=== PATIENT | female | born 1945 | race Caucasian/White ===

== ENCOUNTER 2017-02-15 09:44 | Inpatient (IN) | payer OTHER, MEDICAID ==
[~2017-02-15] VITALS: Ht 162.6 cm; Wt 85.7 kg
[~2017-02-15 09:44] MED LIST: ALEN70TA46; AMLO5TAB4; ASPI-1160; BUDE6HFA IH; IBUP-2028; NAPR-1176
[2017-02-15] MEDS ORDERED: METHYLPREDNISOLONE SOD SUCC 125 MG/2 ML VIAL IV STA (10:19)
[2017-02-15] MEDS ORDERED: ALBUTEROL (0.083%) 2.5MG/3ML NEB HHN STA (10:19)
[2017-02-15 11:02] LABS: BASOPHILS % 0.5 % (0.0-2.0); EOSINOPHILS % 0.7 % (0.0-5.0); HEMATOCRIT. 43.3 % (36.0-48.0); HEMOGLOBIN. 14.5 g/dL (12.0-16.0); LYMPHOCYTES % 33.9 % (20.0-50.0); MEAN CORPUSCULAR HEMOGLOBIN 29.6 pg (28.0-32.0); MEAN CORPUSCULAR VOLUME 88.3 fL (81.0-99.0); MONOCYTES % 10.3 % (2.0-8.0); NEUTROPHILS % 54.6 % (40.0-76.0); RED CELL DISTRIBUTION WIDTH 13.5 % (11.6-14.6)
[2017-02-15 11:08] LABS: INR 1.2; PROTHROMBIN TIME 12.3 sec (9.4-11.6)
[2017-02-15 11:18] LABS: CARBON DIOXIDE 28 mEq/L (21-32); CHLORIDE 101 mEq/L (98-107); TROPONIN I < 0.02 ng/mL (0.00-0.04)
[2017-02-15] MEDS ORDERED: NA PHOS,M-B/NA PHOS,DI-BA ENEMA 118ML PR PRN (12:15)
[2017-02-15] MEDS ORDERED: CLONIDINE 0.1MG TABLET PO PRN (12:15)
[2017-02-15] MEDS ORDERED: HYDROCODONE/ACETAMINOPHEN 5/325MG TABLET PO PRN (12:15)
[2017-02-15] MEDS ORDERED: ONDANSETRON HCL 4MG/2ML VIAL IV PRN (12:15)
[2017-02-15] MEDS ORDERED: IPRATROPIUM/ALBUTEROL 0.5-3(2.5)MG/3ML NEB INH PRN (12:15)
[2017-02-15] MEDS ORDERED: DOCUSATE SODIUM 100MG CAPSULE PO PRN (12:15)
[2017-02-15] MEDS ORDERED: LORAZEPAM 0.5MG TABLET PO PRN (12:15)
[2017-02-15] MEDS ORDERED: ACETAMINOPHEN 325MG TABLET PO PRN (12:15)
[2017-02-15] MEDS ORDERED: DIPHENHYDRAMINE 50MG/ML VIAL IV PRN (12:15)
[2017-02-15] MEDS ORDERED: GUAIFENESIN 200MG/10ML SUGAR FREE UDC PO PRN (12:15)
[2017-02-15] MEDS ORDERED: ENOXAPARIN 40MG/0.4ML SYR SUBCUT SCH (12:15)
[2017-02-15] MEDS ORDERED: MORPHINE SULFATE 2 MG/ML CPJ (NOT FOR IM USE) IV PRN (12:15)
[2017-02-15] MEDS ORDERED: MAGNESIUM/ALUMINUM HYDROXIDE/SIMETHICONE 30ML UDC PO PRN (12:15)
[2017-02-15 12:17] LABS: PLATELET 179 x1000/uL (130-400)
[2017-02-15 13:54] LABS: CARBON DIOXIDE 30 mEq/L (21-32); CHLORIDE 97 mEq/L (98-107)
[2017-02-15 14:15] VITALS: BP 123/37
[2017-02-15 16:00] VITALS: BP 138/66
[2017-02-15] MEDS ORDERED: MENT10LO8 MM (16:00)
[2017-02-15] MEDS ORDERED: LEVOFLOXACIN 500MG PREMIX 100 ML IV SCH (16:00)
[2017-02-15] MEDS ORDERED: ATOR20TA65 PO (16:00)
[2017-02-15] MEDS ORDERED: IBUP-2030 PO (16:00)
[2017-02-15] MEDS ORDERED: METF10002 PO (16:00)
[2017-02-15] MEDS ORDERED: GABA-529 PO (16:00)
[2017-02-15] MEDS ORDERED: GLIP5TAB12 PO (16:00)
[2017-02-15] MEDS ORDERED: IBUPROFEN 800MG TABLET PO PRN (16:45)
[2017-02-15] MEDS: ASPIRIN 81MG EC TABLET PO SCH (17:15)
[2017-02-15] MEDS ORDERED: IPRATROPIUM/ALBUTEROL 0.5-3(2.5)MG/3ML NEB HHN PRN (17:45)
[2017-02-15] MEDS ORDERED: METHYLPREDNISOLONE SOD SUCC 125 MG/2 ML VIAL IV SCH (18:00)
[2017-02-15] MEDS ORDERED: DEXTROSE 50% WATER 50ML SYRINGE IV PRN (18:00)
[2017-02-15] MEDS: METFORMIN HCL 500MG TABLET PO SCH (18:08)
[2017-02-15] MEDS: INSULIN LISPRO 100 UNITS/ML SUBCUT SCH ×2 (18:10→20:52)
[2017-02-15 20:00] VITALS: BP 138/65
[2017-02-15] MEDS: BLOOD SUGAR DIAGNOSTIC STRIP TEST SCH (20:52)
[2017-02-15] MEDS: ENOXAPARIN 30MG/0.3ML SYR SUBCUT SCH (20:52)
[2017-02-15] MEDS: ATORVASTATIN CALCIUM 20MG TABLET PO SCH (20:52)
[2017-02-15] MEDS: GABAPENTIN 100MG CAPSULE PO SCH (20:52)
[2017-02-15] MEDS: METHYLPREDNISOLONE SOD SUCC 40 MG/ML VIAL IV SCH (20:55)
[2017-02-15] MEDS ORDERED: INSULIN REGULAR (HUMULIN R) UD 100 UNITS/ML SYR SUBCUT ONE (21:45)
[2017-02-15] MEDS ORDERED: INSULIN LISPRO 100 UNITS/ML SUBCUT NR (21:45)
[2017-02-15] MEDS: GUAIFENESIN 200MG/10ML SUGAR FREE UDC PO PRN (21:57)
[2017-02-16] VITALS: BP 125/50
[2017-02-16 04:00] VITALS: BP 128/59
[2017-02-16] MEDS: BLOOD SUGAR DIAGNOSTIC STRIP TEST SCH ×4 (05:10→21:38)
[2017-02-16] MEDS: METHYLPREDNISOLONE SOD SUCC 40 MG/ML VIAL IV SCH ×3 (05:29→21:38)
[2017-02-16 06:45] LABS: HEMATOCRIT. 40.6 % (36.0-48.0); HEMOGLOBIN. 13.8 g/dL (12.0-16.0); LYMPHOCYTES % 10.7 % (20.0-50.0); MEAN CORPUSCULAR HEMOGLOBIN 29.8 pg (28.0-32.0); MEAN PLATELET VOLUME 9.2 fl (7.4-10.4); MONOCYTES % 2.6 % (2.0-8.0); NEUTROPHILS % 86.7 % (40.0-76.0); PLATELET 182 x1000/uL (130-400); RED BLOOD CELL COUNT 4.61 mill/uL (4.2-5.4); RED CELL DISTRIBUTION WIDTH 13.8 % (11.6-14.6)
[2017-02-16 07:18] LABS: CARBON DIOXIDE 25 mEq/L (21-32); CHLORIDE 99 mEq/L (98-107); HDL CHOLESTEROL 55 mg/dL (40-59); LDL CHOLESTEROL 60 mg/dL (5-100); T4 FREE 1.08 ng/dL (0.76-1.46)
[2017-02-16] MEDS: GLIPIZIDE 5MG XL TABLET PO SCH (07:48)
[2017-02-16] MEDS: INSULIN LISPRO 100 UNITS/ML SUBCUT SCH ×4 (07:48→21:51)
[2017-02-16] MEDS: METFORMIN HCL 500MG TABLET PO SCH ×2 (07:48→17:54)
[2017-02-16] MEDS: IPRATROPIUM/ALBUTEROL 0.5-3(2.5)MG/3ML NEB HHN SCH ×4 (07:56→22:16)
[2017-02-16 08:00] VITALS: BP 126/49
[2017-02-16] MEDS: ASPIRIN 81MG EC TABLET PO SCH (08:35)
[2017-02-16] MEDS: ENOXAPARIN 30MG/0.3ML SYR SUBCUT SCH ×2 (08:36→21:39)
[2017-02-16 12:00] VITALS: BP 110/49
[2017-02-16 16:00] VITALS: BP 117/43
[2017-02-16] MEDS ORDERED: LEVOFLOXACIN 500MG PREMIX 100 ML IV SCH (16:00)
[2017-02-16] MEDS ORDERED: INSULIN LISPRO 100 UNITS/ML SUBCUT NR (18:00)
[2017-02-16] MEDS ORDERED: INSULIN LISPRO 100 UNITS/ML SUBCUT PRN ×2 (19:09→20:00)
[2017-02-16 20:10] VITALS: BP 107/50
[2017-02-16] MEDS: GUAIFENESIN 200MG/10ML SUGAR FREE UDC PO PRN (21:38)
[2017-02-16] MEDS: ATORVASTATIN CALCIUM 20MG TABLET PO SCH (21:39)
[2017-02-16] MEDS: GABAPENTIN 100MG CAPSULE PO SCH (21:39)
[2017-02-17] VITALS: BP 110/44
[2017-02-17 04:00] VITALS: BP 112/43
[2017-02-17] MEDS: BLOOD SUGAR DIAGNOSTIC STRIP TEST SCH (06:37)
[2017-02-17] MEDS: METHYLPREDNISOLONE SOD SUCC 40 MG/ML VIAL IV SCH (06:37)
[2017-02-17 08:00] VITALS: BP 114/51
[2017-02-17] MEDS: GLIPIZIDE 5MG XL TABLET PO SCH (08:17)
[2017-02-17] MEDS: METFORMIN HCL 500MG TABLET PO SCH (08:17)
[2017-02-17] MEDS: INSULIN LISPRO 100 UNITS/ML SUBCUT SCH (08:18)
[2017-02-17] MEDS: ASPIRIN 81MG EC TABLET PO SCH (09:18)
[2017-02-17] MEDS: ENOXAPARIN 30MG/0.3ML SYR SUBCUT SCH (09:18)
[2017-02-17] MEDS: IPRATROPIUM/ALBUTEROL 0.5-3(2.5)MG/3ML NEB HHN SCH (09:31)
[2017-02-17 10:42] LABS: BG BASE EXCESS -0.9 mmol/L (-2.0-2.0); BG CARBOXYHEMOGLOBIN 0.6 % (0.5-1.5); BG DEOXYHEMOGLOBIN 4.1 % (0.0-5.0); BG FRACTION INSPIRED OXYGEN 21; BG HCO3 ACT 23.7 mmol/L (22.0-26.0); BG METHEMOGLOBIN 0.4 % (0.0-1.5); BG OXYGEN SATURATION 95.9 % (92.0-98.5); BG OXYHEMOGLOBIN 94.9 % (94.0-97.0); BG PCO2 38.9 mmHg (35.0-45.0); BG PH 7.402 (7.350-7.450); BG PO2 81.7 mmHg (75.0-100.0); BG SAMPLE SITE RIGHT BRACHIAL; BG TOTAL HEMOGLOBIN 14.2 g/dL (12.0-18.0); BG VENT MODE ROOM AIR
[2017-02-17 11:02] VITALS: BP 114/51
[2017-02-17 12:00] VITALS: BP 135/58
== END 2017-02-17 12:45 | disposition home or self-care (01) | DRG 178 ==
LOC: ER 10:46 → 7WST 11:58 → ENRESERV 13:29 → 7WST 16:34
PROVIDERS: ADMIT Internal Medicine; ATTEND Internal Medicine
DX: J69.0 Pneumonitis due to inhalation of food and vomit (principal); J45.901 Unspecified asthma with (acute) exacerbation; E11.9 Type 2 diabetes mellitus without complications; E66.01 Morbid (severe) obesity due to excess calories; Z68.32 Body mass index [BMI] 32.0-32.9, adult; J20.9 Acute bronchitis, unspecified; E78.5 Hyperlipidemia, unspecified; I10 Essential (primary) hypertension; K43.9 Ventral hernia without obstruction or gangrene; Z79.84 Long term (current) use of oral hypoglycemic drugs; Z79.899 Other long term (current) drug therapy; Z79.82 Long term (current) use of aspirin; Z88.0 Allergy status to penicillin; Z88.8 Allergy status to other drugs, medicaments and biological substances
CPT/HCPCS: 36415; 36600; 71010; 80048; 80053; 80061; 82375; 82805; 82962; 83880; 84439; 84443; 84484; 85025; 85610; 87804; 93005; 94640; 96374; 99285; J1200; J1650; J1815; J1956; J2270; J2405; J2920; J2930; J7050; J7611; J7620

== ENCOUNTER 2020-04-15 20:12 | Emergency (ER) | payer MEDICARE, MEDICAID ==
[~2020-04-15] VITALS: Ht 154.9 cm; Wt 81.0 kg
[~2020-04-15 20:12] MED LIST changes: -ALEN70TA46; -AMLO5TAB4; -ASPI-1160; +ATOR20TA65 PO; -BUDE6HFA IH; +GABA-529 PO; +GLIP5TAB12 PO; -IBUP-2028; +IBUP-2030 PO; +MENT10LO8 MM; +METF-416 PO; -NAPR-1176
[2020-04-15 21:47] LABS: CLARITY URINE CLOUDY (CLEAR); COLOR URINE ORANGE (YELLOW); KETONES URINE TRACE (NEGATIVE); LEUKOCYTE ESTERASE URINE 2+ (NEGATIVE); NITRITE URINE POSITIVE (NEGATIVE); OCCULT BLOOD URINE NEGATIVE (NEGATIVE); PROTEIN URINE 1+ (NEGATIVE); SPECIFIC GRAVITY URINE 1.039 (1.005-1.030)
[2020-04-15 21:54] LABS: CHLORIDE 104 mEq/L (98-107)
[2020-04-15] MEDS ORDERED: ACETAMINOPHEN 325MG TABLET PO ONE (22:30)
[2020-04-16 00:19] VITALS: BP 136/78
== END 2020-04-16 00:19 | disposition home or self-care (01) ==
LOC: ER 20:12
DX: E11.649 Type 2 diabetes mellitus with hypoglycemia without coma (principal); E11.65 Type 2 diabetes mellitus with hyperglycemia; N39.0 Urinary tract infection, site not specified; G89.29 Other chronic pain; M25.512 Pain in left shoulder; I10 Essential (primary) hypertension; J45.909 Unspecified asthma, uncomplicated; Z79.84 Long term (current) use of oral hypoglycemic drugs; Z88.1 Allergy status to other antibiotic agents; Z88.0 Allergy status to penicillin
CPT/HCPCS: 36415; 80048; 81003; 82962; 93005; 99284